=== PATIENT | female | born 1960 | race American Indian/Alaskan Native ===

== ENCOUNTER 2016-11-24 15:04 | Outpatient (CLI) | payer OTHER ==
--- NOTE | 2016-11-24 15:46 | XRay Report ---
LEFT ELBOW THREE VIEWS: 11/24/16 15:04:00 CLINICAL: Pain. FINDINGS: No fracture or dislocation. The radiohumeral and ulnohumeral joints are normal. A large triceps insertion enthesophyte. No joint effusion. Normal soft tissues. No bursal distention identified. IMPRESSION: Triceps enthesopathy and otherwise negative.
== END 2016-11-24 15:05 | disposition home or self-care (01) ==
LOC: SPVIMAG 15:04
PROVIDERS: ATTEND Orthopaedic Surgery Sports Medicine
DX: M77.8 Other enthesopathies, not elsewhere classified (principal); M25.522 Pain in left elbow